=== PATIENT | male | born 1970 | race Hispanic/Latino ===

== ENCOUNTER 2018-03-31 11:51 | Emergency (ER) | payer BC ==
[2018-03-31] MEDS ORDERED: Dexamethasone 4 MG TAB ONE (12:18)
== END 2018-03-31 12:23 | disposition home or self-care (01) ==
LOC: SCSER 11:51
DX: J02.9 Acute pharyngitis, unspecified (principal); H65.93 Unspecified nonsuppurative otitis media, bilateral
CPT/HCPCS: 99283; J8540